=== PATIENT | male | born 1970 | race Two or more races ===

== ENCOUNTER 2024-08-17 12:22 | Emergency (ER) | payer OTHER ==
[~2024-08-17] VITALS: Ht 165.1 cm; Wt 81.8 kg
[2024-08-17 12:48] VITALS: BP 145/82; PULSE 94; RESP 18; TEMP 98.2; O2SAT 99
[2024-08-17] MEDS ORDERED: POLY119P3 PO (13:24)
[2024-08-17] MEDS ORDERED: ACET-66 PO (13:24)
== END 2024-08-17 13:52 | disposition home or self-care (01) ==
LOC: EMS 12:25
DX: K40.90 Unilateral inguinal hernia, without obstruction or gangrene, not specified as recurrent (principal); K59.00 Constipation, unspecified; L40.9 Psoriasis, unspecified
CPT/HCPCS: 99282; Z7502

== ENCOUNTER 2024-10-31 13:04 | Emergency (ER) | payer OTHER ==
[~2024-10-31] VITALS: Ht 167.6 cm; Wt 77.3 kg
[~2024-10-31 13:04] MED LIST: ACET-66 PO; POLY119P3 PO
[2024-10-31 13:10] VITALS: BP 161/95; PULSE 101; RESP 16; TEMP 97.9; O2SAT 97
[2024-10-31] MEDS ORDERED: SODIUM CHLORIDE 0.9% 1,000 ML IV ONE (13:30)
[2024-10-31 13:59] LABS: BASOPHILS % (AUTO) 0.4 % (0.0-2.0); EOSINOPHILS % (AUTO) 0.4 % (1.0-6.0); HEMATOCRIT 44.6 % (41-53); HEMOGLOBIN 15.8 g/dL (13.5-17.5); LYMPHOCYTES # (AUTO) 1.3 K/uL (1.0-4.8); MEAN CORPUSCULAR HEMOGLOBIN 34.1 pg (26.0-34.0); MEAN CORPUSCULAR HGB CONC 35.4 G/dL (31.0-37.0); MEAN CORPUSCULAR VOLUME 96 fL (80-100); MONOCYTES # (AUTO) 0.2 K/uL (0.1-1.0); MONOCYTES % (AUTO) 4.3 % (2.0-9.0); NEUTROPHILS # (AUTO) 3.6 K/uL (1.8-7.7); NEUTROPHILS % (AUTO) 69.9 % (40.0-70.0); PLATELET COUNT (AUTO) 155 K/uL (150-450); RED BLOOD CELL COUNT(AUTO) 4.63 MIL/uL (4.50-5.90); RED CELL DISTRIBUTION WIDTH 13.1 % (11.5-14.5); WHITE BLOOD COUNT (AUTO) 5.2 K/uL (4.5-11.0)
[2024-10-31 14:02] LABS: APPEARANCE,URINE CLEAR (CLEAR); BILIRUBIN,URINE NEGATIVE (NEGATIVE); COLOR,URINE COLORLESS (YELLOW); GLUCOSE, URINE (UA) >=1000 mg/dL (NEGATIVE); KETONES,URINE NEGATIVE (NEGATIVE); LEUKOCYTE ESTERASE ,URINE NEGATIVE (NEGATIVE); NITRATE,URINE NEGATIVE (NEGATIVE); OCCULT BLOOD,URINE SMALL (NEGATIVE); PROTEIN,URINE 30-70 mg/dL (NEGATIVE); SPECIFIC GRAVITIY, URINE 1.003 (1.003-1.030); UROBILINOGEN,URINE <=1.0 mg/dL (<=1.0)
[2024-10-31 14:06] LABS: BACTERIA,URINE None Seen /HPF (None Seen); WBC,URINE None Seen /HPF (0-5)
[2024-10-31 14:07] LABS: RBC,URINE 0-2 /HPF (0-2)
[2024-10-31 14:11] LABS: ANION GAP 9 mmol/L (8-16); CALCIUM, TOTAL 9.4 mg/dL (8.8-10.5); CARBON DIOXIDE 30 mmol/L (22-29); CHLORIDE 99 mmol/L (98-107); CREATININE 0.69 mg/dL (0.60-1.30); GLOMERULAR FILTR. RATE CALC > 60 mL/min (>60); GLUCOSE,RANDOM 284 mg/dL (70-110); POTASSIUM 3.7 mmol/L (3.5-5.1); SODIUM SERUM 138 mmol/L (136-145); UREA NITROGEN, BLOOD 6 mg/dL (7-18)
[2024-10-31 14:17] LABS: ALBUMIN 3.6 g/dL (3.4-5.0); BILIRUBIN,DIRECT 0.2 mg/dL (0.00-0.20); BILIRUBIN,TOTAL 0.7 mg/dL (0.1-1.0); TOTAL PROTEIN, SERUM 7.7 g/dL (6.4-8.2)
[2024-10-31 14:23] LABS: LIPASE 42 U/L (16-77); TROPONIN I-HIGH SENSITIVITY 17 ng/L (<76)
== END 2024-10-31 14:09 | disposition left against medical advice (07) ==
LOC: EMS 13:05
DX: K40.90 Unilateral inguinal hernia, without obstruction or gangrene, not specified as recurrent (principal); R10.84 Generalized abdominal pain; I10 Essential (primary) hypertension; E11.9 Type 2 diabetes mellitus without complications; Z79.899 Other long term (current) drug therapy
CPT/HCPCS: 71045; 80048; 80076; 81001; 82962; 83690; 84484; 85025; 93005; 99285; 36415-L1; 36415-TC

== ENCOUNTER 2024-12-08 13:51 | Emergency (ER) | payer OTHER ==
[~2024-12-08] VITALS: Ht 175.3 cm; Wt 84.1 kg
[2024-12-08 13:56] VITALS: TEMP 99
[2024-12-08] MEDS ORDERED: AMLO10TA55 PO (13:59)
[2024-12-08] MEDS ORDERED: OMEP20CA12 PO (13:59)
[2024-12-08 14:11] LABS: GLUCOMETER DEV NAME(LOC) ERT.6; GLUCOSE,POINT OF CARE 442 MG/DL (70-110)
[2024-12-08 15:43] LABS: BASOPHILS % (AUTO) 0.2 % (0.0-2.0); EOSINOPHILS % (AUTO) 0.1 % (1.0-6.0); HEMATOCRIT 47.3 % (41-53); HEMOGLOBIN 16.7 g/dL (13.5-17.5); LYMPHOCYTES # (AUTO) 0.4 K/uL (1.0-4.8); LYMPHOCYTES % (AUTO) 5.8 % (22.0-44.0); MEAN CORPUSCULAR HEMOGLOBIN 34.3 pg (26.0-34.0); MEAN CORPUSCULAR HGB CONC 35.4 G/dL (31.0-37.0); MEAN CORPUSCULAR VOLUME 97 fL (80-100); MONOCYTES # (AUTO) 0.3 K/uL (0.1-1.0); MONOCYTES % (AUTO) 4.7 % (2.0-9.0); NEUTROPHILS # (AUTO) 6.6 K/uL (1.8-7.7); PLATELET COUNT (AUTO) 188 K/uL (150-450); RED BLOOD CELL COUNT(AUTO) 4.88 MIL/uL (4.50-5.90); RED CELL DISTRIBUTION WIDTH 13.7 % (11.5-14.5); WHITE BLOOD COUNT (AUTO) 7.4 K/uL (4.5-11.0)
[2024-12-08 15:46] LABS: NEUTROPHILS % (AUTO) 89.2 % (40.0-70.0)
[2024-12-08 15:54] LABS: ANION GAP 13 mmol/L (8-16); CALCIUM, TOTAL 9.2 mg/dL (8.8-10.5); CARBON DIOXIDE 28 mmol/L (22-29); CHLORIDE 93 mmol/L (98-107); CREATININE 0.99 mg/dL (0.60-1.30); GLOMERULAR FILTR. RATE CALC > 60 mL/min (>60); GLUCOSE,RANDOM 375 mg/dL (70-110); POTASSIUM 3.7 mmol/L (3.5-5.1); SODIUM SERUM 133 mmol/L (136-145); UREA NITROGEN, BLOOD 14 mg/dL (7-18)
[2024-12-08 15:59] LABS: ALBUMIN 3.8 g/dL (3.4-5.0); BILIRUBIN,DIRECT 0.3 mg/dL (0.00-0.20); BILIRUBIN,TOTAL 1.3 mg/dL (0.1-1.0); TOTAL PROTEIN, SERUM 7.7 g/dL (6.4-8.2)
[2024-12-08 16:02] LABS: ACETONE,BLOOD NEGATIVE (NEGATIVE); LIPASE 32 U/L (16-77); TROPONIN I-HIGH SENSITIVITY 9 ng/L (<76)
[2024-12-08 16:04] LABS: APPEARANCE,URINE CLEAR (CLEAR); BILIRUBIN,URINE NEGATIVE (NEGATIVE); COLOR,URINE LIGHT YELLOW (YELLOW); GLUCOSE, URINE (UA) >=1000 mg/dL (NEGATIVE); KETONES,URINE NEGATIVE (NEGATIVE); LEUKOCYTE ESTERASE ,URINE NEGATIVE (NEGATIVE); NITRATE,URINE NEGATIVE (NEGATIVE); OCCULT BLOOD,URINE SMALL (NEGATIVE); PH,URINE 5.5 (5.0-8.0); PROTEIN,URINE 100-200,SEE CONFIRM mg/dL (NEGATIVE); SPECIFIC GRAVITIY, URINE 1.021 (1.003-1.030); UROBILINOGEN,URINE <=1.0 mg/dL (<=1.0)
[2024-12-08] MEDS: ONDANSETRON HCL 4 MG/2 ML VIAL IVP ONE (16:05)
[2024-12-08] MEDS: SODIUM CHLORIDE 0.9% 1,000 ML IV ONE (16:05)
[2024-12-08 16:29] LABS: BACTERIA,URINE Rare /HPF (None Seen); RBC,URINE 0-2 /HPF (0-2); SQUAMOUS EPITHELIAL CELL,UR Rare /LPF (None Seen); SULFOSALICYLIC ACID,URINE 1+ (Negative)
[2024-12-08] MEDS: INSULIN REGULAR, HUMAN 100 UNITS/ML IVP ONE (17:10)
[2024-12-08 17:20] VITALS: BP 123/76; PULSE 93; RESP 18; O2SAT 97
[2024-12-08 17:25] LABS: GLUCOMETER DEV NAME(LOC) ER.7; GLUCOSE,POINT OF CARE 304 MG/DL (70-110)
== END 2024-12-08 17:33 | disposition home or self-care (01) ==
LOC: EMS 13:51
DX: A08.4 Viral intestinal infection, unspecified (principal); I10 Essential (primary) hypertension; E11.65 Type 2 diabetes mellitus with hyperglycemia; Z79.899 Other long term (current) drug therapy
CPT/HCPCS: 99284; 96374; 96361; 80048; 80076; 81001; 82009; 82962; 83690; 84484; 85025; 36415; 93005; J2405; J7030; 81002

== ENCOUNTER 2025-02-19 13:10 | Emergency (ER) | payer OTHER ==
[~2025-02-19] VITALS: Ht 175.3 cm; Wt 77.3 kg
[~2025-02-19 13:10] MED LIST changes: -ACET-66 PO; +AMLO10TA55 PO; +OMEP20CA12 PO; -POLY119P3 PO
[2025-02-19 13:17] VITALS: TEMP 97.9
[2025-02-19 13:36] LABS: GLUCOMETER DEV NAME(LOC) ER.7; GLUCOSE,POINT OF CARE 352 MG/DL (70-110)
[2025-02-19] MEDS ORDERED: ATOR40TA71 PO (15:45)
[2025-02-19] MEDS ORDERED: GLIP5TAB15 PO (15:45)
[2025-02-19] MEDS ORDERED: PANT20TA18 PO (15:45)
[2025-02-19] MEDS ORDERED: METO5TAB2 PO (15:45)
[2025-02-19] MEDS: PB/HYOSCY/ATR/SCOP/LIDO/MAALOX 55 ML BOTTLE PO ONE (15:53)
[2025-02-19 16:06] LABS: CALCIUM, TOTAL 10.0 mg/dL (8.8-10.5); CREATININE 0.82 mg/dL (0.60-1.30); GLOMERULAR FILTR. RATE CALC > 60 mL/min (>60); GLUCOSE,RANDOM 292 mg/dL (70-110); SODIUM SERUM 135 mmol/L (136-145); UREA NITROGEN, BLOOD 7 mg/dL (7-18)
[2025-02-19 16:09] LABS: PLATELET COUNT (AUTO) 192 K/uL (150-450); RED BLOOD CELL COUNT(AUTO) 4.57 MIL/uL (4.50-5.90); RED CELL DISTRIBUTION WIDTH 13.2 % (11.5-14.5); WHITE BLOOD COUNT (AUTO) 6.3 K/uL (4.5-11.0)
[2025-02-19 16:12] LABS: ASPARTATE AMINOTRANSFERASE 29.0 U/L (15-37); TOTAL PROTEIN, SERUM 7.3 g/dL (6.4-8.2)
[2025-02-19 16:16] LABS: TROPONIN I-HIGH SENSITIVITY 13 ng/L (<76)
[2025-02-19 17:03] LABS: APPEARANCE,URINE CLEAR (CLEAR); GLUCOSE, URINE (UA) >=1000 mg/dL (NEGATIVE); LEUKOCYTE ESTERASE ,URINE NEGATIVE (NEGATIVE); NITRATE,URINE NEGATIVE (NEGATIVE); OCCULT BLOOD,URINE TRACE (NEGATIVE); SPECIFIC GRAVITIY, URINE 1.010 (1.003-1.030)
[2025-02-19 17:17] LABS: SULFOSALICYLIC ACID,URINE 2+ (Negative)
[2025-02-19 17:18] LABS: SQUAMOUS EPITHELIAL CELL,UR Rare /LPF (None Seen)
[2025-02-19] MEDS: SODIUM CHLORIDE 0.9% 1,000 ML IV ONE (18:41)
[2025-02-19] MEDS: FAMOTIDINE 20 MG/2 ML VIAL IVP ONE (18:41)
[2025-02-19] MEDS ORDERED: FAMO20 PO (18:59)
[2025-02-19 20:00] VITALS: BP 145/82; PULSE 82; RESP 16; O2SAT 96
== END 2025-02-19 21:01 | disposition home or self-care (01) ==
LOC: EMS 13:12
DX: K29.70 Gastritis, unspecified, without bleeding (principal); K80.50 Calculus of bile duct without cholangitis or cholecystitis without obstruction; E11.9 Type 2 diabetes mellitus without complications; I10 Essential (primary) hypertension; K21.9 Gastro-esophageal reflux disease without esophagitis; Z79.899 Other long term (current) drug therapy
CPT/HCPCS: 99285; 96374; 76705; 96361; 80048; 80076; 81001; 82962; 83690; 84484; 85025; 36415; 74018; 93005; J3490; J7030; 81002